=== PATIENT | female | born 1960 | race Caucasian/White ===

== ENCOUNTER 2017-01-10 11:36 | Emergency (ER) | payer BC, OTHER ==
[~2017-01-10] VITALS: Ht 165.1 cm; Wt 86.2 kg
[~2017-01-10 11:36] MED LIST: ASPI-991; BACL10TA; IBUP-1482; LORA0.5T; MELO-264
[2017-01-10 11:41] VITALS: BP 126/86
[2017-01-10] MEDS ORDERED: KETOROLAC TROMETHAMINE INJ 30 MG/ML VIAL ONE (12:08)
[2017-01-10] MEDS ORDERED: DIAZEPAM 5 MG TABLET ONE (12:08)
--- NOTE | 2017-01-10 12:18 | NUR ---
PT TO RADIOLOGY FOR HEAD AND C SPINE XRAY VIA WHEELCHAIR.
[2017-01-10] MEDS ORDERED: KETOROLAC TROMETHAMINE INJ 60 MG/2 ML VIAL IM ONE (12:30)
[2017-01-10] MEDS ORDERED: DIAZEPAM 5 MG TABLET PO ONE (12:30)
--- NOTE | 2017-01-10 13:26 | NUR ---
D/C IN STABLE CONDITION.
== END 2017-01-10 13:27 | disposition home or self-care (01) ==
LOC: ER 11:37
DX: S16.1XXA Strain of muscle, fascia and tendon at neck level, initial encounter (principal); V48.5XXA Car driver injured in noncollision transport accident in traffic accident, initial encounter; Y93.89 Activity, other specified; Y92.413 State road as the place of occurrence of the external cause; Y99.8 Other external cause status; G89.29 Other chronic pain; F32.9 Major depressive disorder, single episode, unspecified; F41.9 Anxiety disorder, unspecified; Z79.82 Long term (current) use of aspirin
CPT/HCPCS: 71020-TC; 72050-TC; A4606; J1885; Z7610